=== PATIENT | female | born 1975 | race Caucasian/White ===

== ENCOUNTER 2020-06-15 13:48 | Emergency (ER) | payer OTHER, SELFPAY ==
--- NOTE | ~2020-06-15 | XR_ITS ---
EXAMINATION: XR chest 2V DATE: 06/15/2020 14:56 INDICATION: Cough. TECHNIQUE: Frontal and lateral views of the chest were obtained. COMPARISON: None. FINDINGS: The chest demonstrates clear lungs without pneumonia, pleural effusion, or pneumothorax. Th e heart size is normal. Surgical clips in the right upper quadrant are likely from cholecystectomy. IMPRESSION: 1. No acute cardiopulmonary disease. Reviewed, dictated and finalized at location A. HOLOGIST
[2020-06-15 14:14] VITALS: BP 115/70; PULSE 66; RESP 16; TEMP 37.2; O2SAT 98
--- NOTE | 2020-06-15 15:06 | ED.GENADULT ---
HPI - General Adult General Chief complaint: Dental/Oral Stated complaint: tooth pain/cough/runny nose Time Seen by Provider: 06/15/20 14:16 Source: patient and RN notes reviewed Mode of arrival: ambulatory Limitations: no limitations History of Present Illness HPI narrative: Patient presents today complaining of productive cough, fatigue, body aches, subjective fever, chills and sweats x1 week. He currently rates his pain 6/10 and has been taking Tylenol. At the beginning of May, patient was having some right lower dental pain for which she was taking aspirin frequently. He was prescribed amoxicillin but did not finish it. Reports he accidentally overdosed and went into kidney failure and was admitted to the hospital on May 26. There he received dialysis and was subsequently [facility] on May 30 [facility] a [facility]. He left the [facility] and then went to [place] and back to this area looking for work. 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 Patient had COVID-19 approximately 1 year ago. Reports history of chronic bronchitis. MD complaint: Cough, fever, body aches, tooth pain Related Data Allergies Allergy/AdvReac Type Severity Reaction Status Date / Time No Known Allergies Allergy Verified 06/15/20 14:11 Review of Systems Review of Systems: Narrative: CONSTITUTIONAL: + Fatigue, subjective fever, chills and sweats, body aches EYES: Denies visual changes, redness, or discharge. ENT: Denies rhinorrhea, congestion, sore throat, or otalgia.+ Dental pain CARDIOVASCULAR: Denies chest pain, palpitations, or edema. RESPIRATORY: Denies dyspnea.+ Cough GASTROINTESTINAL: Denies abdominal pain, nausea, vomiting, or diarrhea. GENITOURINARY: Denies dysuria or hematuria. SKIN: Denies rash, itching, or wounds. MUSCULOSKELETAL: Denies back pain, joint pain, or myalgia. NEUROLOGIC: Denies headache, numbness, tingling, or weakness. PSYCH: Denies depression or anxiety. [facility] Past Medical History Medical History (Updated 06/15/20 @ 15:48 by Leah Velasquez, MAP COLORER, ) Chronic bronchitis Osteoarthritis Comments At time of signature, I have reviewed and agree with nursing past medical, surgical, social and family history unless otherwise noted. Please see nursing chart for further information. There is no relevant family history pertinent to the presenting complaint Exam Narrative: Exam Narrative: GENERAL: Well-appearing, well-nourished, and in no acute distress. Unkempt. HEAD: Normocephalic, atraumatic. EYES: EOMI. No redness or drainage. Conjunctivae normal. ENT: Mucous membranes pink and moist. Nares clear. No rhinorrhea. TMs normal bilaterally. Throat normal. Uvula midline. Gross dental decay. +Tooth 31 is tender to palpation. No obvious surrounding edema or periapical abscess noted. No facial swelling noted. NECK: Normal AROM. Supple. No lymphadenopathy. CHEST: No respiratory distress. Crackles in the right lower lobe, otherwise clear. HEART: Regular rate and rhythm. No murmur appreciated. Normal peripheral pulses. EXTREMITIES: Normal range of motion. No edema. SKIN: Warm, dry, no rash. Capillary refill normal. Normal skin turgor. NEURO: No focal deficits. Alert and oriented x3. Gait steady. PSYCH: Normal affect. No signs of depression or anxiety. Course Vital Signs Vital signs: Vital Signs Temperature 98.9 F 06/15/20 14:14 Pulse Rate 66 06/15/20 14:14 Respiratory Rate 16 06/15/20 14:14 Blood Pressure 115/70 06/15/20 14:14 Pulse Oximetry 98 06/15/20 14:14 Temperature 98.9 F 06/15/20 14:14 Pulse Rate 66 06/15/20 14:14 Respiratory Rate 16 06/15/20 14:14 Blood Pressure 115/70 06/15/20 14:14 Pulse Oximetry 98 06/15/20 14:14 Reviewed Medical Decision Making MDM Narrative Medical decision making narrative: Patient states his kidney function is back to normal prior to being discharged from the hospital few weeks ago. Differential Diagnosis Di
== END 2020-06-15 15:18 | disposition home or self-care (01) ==
PROVIDERS: Emergency Provider Nurse Practitioner
DX: U07.1 COVID-19 (principal); K02.9 Dental caries, unspecified; M19.90 Unspecified osteoarthritis, unspecified site
CPT/HCPCS: 71046; 87426; 87804; 99203; C9803; G0463

== ENCOUNTER 2021-02-21 12:47 | Emergency (ER) | payer SELFPAY ==
[2021-02-21 13:00] VITALS: BP 142/89; PULSE 91; RESP 16; TEMP 35.7; O2SAT 98
--- NOTE | 2021-02-21 13:35 | ED.URI ---
HPI - URI/Sore Throat General Chief Complaint: Upper Respiratory Infection Stated Complaint: Throat,Stomach Pain Time Seen by Provider: 02/21/21 13:35 Source: patient Mode of arrival: ambulatory Limitations: no limitations History of Present Illness HPI Narrative: Kasi Montenegro is a 46 yo male with a PMH of ADD, anxiety, who comes here for evaluation of upper respiratory symptoms. Abdominal pain that he thinks is related to a prior history of abdominal ulcer, recommended that if he felt he needed treatment for this should go to the ER because he will be blood work done. Identifies other medical issues and psychiatric history that is not documented in prior records are by medication bottles that the patient brought into the visit Related Data Home Medications Medication Instructions Recorded Confirmed dextroamphetamine-amphetamine 5 mg PO DAILY 02/21/21 02/21/21 [Adderall] diazepam [Valium] 2 mg PO BID PRN 02/21/21 02/21/21 Allergies Allergy/AdvReac Type Severity Reaction Status Date / Time No Known Allergies Allergy Verified 02/21/21 13:40 Review of Systems Review of Systems: CONSTITUTIONAL: Denies fever, chills, sweats. Has myalgias and fatigue EYES: Denies visual changes, redness, discharge. ENT: Denies rhinorrhea, congestion, has sore throat, otalgia. CARDIOVASCULAR: Denies chest pain, palpitations, edema. RESPIRATORY: Denies dyspnea, wheezing, cough GASTROINTESTINAL: Denies abdominal pain, nausea, vomiting, diarrhea. GENITOURINARY: Denies dysuria, hematuria, abnormal discharge SKIN: Denies rash or itching. NEUROLOGIC: Denies numbness, or focal weakness. PSYCHIATRIC: Denies anxiety or depression. [facility] Past Medical History Medical History (Updated 02/21/21 @ 13:54 by Kristy Albrecht CNP) Chronic bronchitis Chronic pancreatitis Chronic stomach ulcer Osteoarthritis Family History Family History (Updated 02/21/21 @ 13:49 by Kristy Albrecht CNP) Other Hypertension Social History Social History (Updated 02/21/21 @ 13:50 by Kristy Albrecht CNP) Smoking status: Current every day smoker Tobacco type: cigars and e-cigarettes/vaping Alcohol intake: former Alcohol use details: Stopped due to diagnosis of chronic pancreatitis in the past Comments At time of signature, I agree with nursing past medical, surgical, social and family history. There is no relevant family history pertinent to the presenting complaint. Blood pressure elevated today referred to a new PCP for primary care Exam Narrative: GENERAL: This is a well-nourished, well-developed patient, in mild distress. HEAD: normocephalic, atraumatic. EYES: He was in essence this morning sclera clear/white. Vision is grossly intact. EARS: External ears normal, auditory canals clear and without drainage, TMs normal without perforation. Hearing grossly intact. NOSE: External nose normal without nasal discharge, nares without redness, no rhinorrhea. THROAT: Mucous membranes moist, posterior pharynx erythema NECK: Neck supple, non-tender to palpation or with swelling CARDIOVASCULAR: Regular rate and rhythm without murmurs, gallops, or rubs. RESPIRATORY: Clear to auscultation. Breath sounds equal bilaterally. No wheezes, rales, or rhonchi. GASTROINTESTINAL: Abdomen soft, non-tender, although states he has some epigastric discomfort SKIN: warm, intact with no suspicious lesions or rash, good texture and turgor. NEURO: awake, alert, and oriented to person, place and time. There were no obvious focal neurologic abnormalities. Steady gait EXTREMITIES: Normal range of motion. BACK: Nontender without deformity Course Course Emergency Course: Patient seen for upper respiratory symptoms and fatigue and statement about having some abdominal discomfort Strep test negative Covid test negative Started on Flonase For abdominal discomfort pain continues after trying omeprazole he should go to the emergency room to get evaluated with blood wor
== END 2021-02-21 13:35 | disposition home or self-care (01) ==
PROVIDERS: Emergency Provider Nurse Practitioner
DX: J06.9 Acute upper respiratory infection, unspecified (principal); Z20.822 Contact with and (suspected) exposure to COVID-19; M19.90 Unspecified osteoarthritis, unspecified site; F17.200 Nicotine dependence, unspecified, uncomplicated
CPT/HCPCS: 87081; 87426; 87880; 99213; C9803; G0463